=== PATIENT | male | born 1965 | race American Indian/Alaskan Native ===

== ENCOUNTER 2016-04-19 11:46 | Emergency (ER) | payer SELFPAY ==
[2016-04-19 12:04] VITALS: BP 150/112
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
== END 2016-04-19 14:09 | disposition left against medical advice (07) ==
LOC: ED 11:46
DX: M54.5 Low back pain (principal); I10 Essential (primary) hypertension; Z53.21 Procedure and treatment not carried out due to patient leaving prior to being seen by health care provider